=== PATIENT | male | born 1970 | race African-American/Black ===

== ENCOUNTER 2025-01-20 18:17 | Emergency (ER) | payer SELFPAY ==
--- OUTSIDE RECORDS SUMMARY | 2025-01-20 17:33 | XMS_ITS | Encounter Summary ---
Author Organization [facility] Address [id number] [place] [id number] Care Team Providers Care Garnett Machine Operator Name Role Phone Danie Perez MD Primary Care Provider [phone] Reason for Visit * Reason Comments Eye Drainage Eye swollen with anna dalton drainage x5 days Encounter Details Date Type Department Care Team (Late st Contact Info) Description 01/20/2025 5:33 PM EST - 01/20/2025 6:05 PM EST Emergency [facility] Emergency [address] [place] [address] Discharge Disposition: Home or Self Care Social History Tobacco Use Types Packs/Day Years Used Date Smoking Tobacco: Every Day Cigarettes Alcohol Use Standard Drinks/Week Comments Not Asked 0 (1 standard drink = 0.6 oz pur e alcohol) Sex and Gender Information Value Date Recorded Sex Assigned at Not on file Legal Sex Male 9:45 AM EST Gender Identity Not on file Sexual Orientation Not on file documented as of this encounter Last Filed Vital Signs Vital Sign Reading Time Taken Comments Blood Pressure 155/75 01/20/2025 3:19 PM EST Pulse 109 01/20/2025 3:19 PM EST Temperature 36.9 C (98.4 F) 01/20/2025 3:19 PM EST Respiratory Rate 18 01/20/2025 3:19 PM EST Oxygen Saturation 96% 01/20/2025 3:19 PM EST Inhaled Oxygen Concentration - - Weight 86.2 kg (190 lb) 01/20/2025 3:19 PM EST Height 177.8 cm (5' 10 ) 01/20/2025 3:19 PM EST Body Mass Index 27.26 01/20/2025 3:19 PM EST documented in this encounter Functional Status * Calculated C-SSRS Risk Score (Lifetime/Recent) Answer Date of Assessment Author No Risk Indicated 01/20/2025 2:42 PM Amari Ochoa RN * [place] Suicide Severity Rating Scale (Screener/Recent Self-Report) Question Answer Date of Assessment Author 1. Wish to be (Past 1 Month) No 025 2:42 PM eCle Ochoa RN 2. Non-Specific Active Suici aubrey Thoughts (Past 1 Month) No 01/20/2025 2:42 PM Darek Ochoa RN 6. Suicidal Behavior (Lifetime) No 5 2:42 PM Cele Ochoa RN documented as of this encounter Discharge Disposition Disposition Code Departure Means Destination Comment s Home or Self Care documented in this encounter Progress Notes * Cele Gurrola RN - 01/20/2025 2:41 PM EST Eye swollen, red with watery drainage x5 days. 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 Vision is getting blurry. documented in this encounter Plan of Treatment Not on file documented as of this encounter Visit Diagnoses Not on filedocumented in this encounter Care Teams Garnett Machine Operator Relationship Specialty Start Date End Date Danie Perez MD [address] [place] [id number] PCP - General 05/11/03 documented as of this encounter
[2025-01-20 18:21] VITALS: BP 145/84; PULSE 106; RESP 20; TEMP 36.8; O2SAT 97; BMI 28.8
--- NOTE | 2025-01-20 18:22 | ED_ITS ---
HPI - Eye Problem General Chief complaint: Eye Problems Stated complaint: left eye swelling Time Seen by Provider: 01/20/25 21:54 History of Present Illness ED Provider: Chloé BEINTEZ Narrative: The patient is a 54-year-old male who has been having worsening swelling and discomfort in his left eye over the last 4-5 days. He says that he has been helping a friend work on a car in her garage and he thinks that something might have gotten into his left eye that irritate the eye. He says that the left eye has been gradually getting more and more swollen and irritated. He feels that the vision is somewhat blurry. Related Data Previous Rx's ?Medication ?Instructions ?Recorded acetaminophen 500 mg capsule 1,000 mg (2 x 500 mg) PO Q8H PRN 01/20/25 fever or pain #14 caps ibuprofen 400 mg tablet 400 mg PO Q6H PRN pain #14 t abs 01/20/25 moxifloxacin 0.5 % eye drops 1 drp ophthalmic (eye) TI D 7 days 01/20/25 (Vigamox) #3 mL Allergies Allergy/AdvReac Type Severity Reaction Status Date / Time No Known Allergies Allergy Verified 01/20/25 18:25 Review of Systems Review of Systems: Yes all other systems are reviewed and are negative PMFSH Social History Social History Advance Directives: No Advance Directives Information Provided: No Do you have a plan to hurt others: No Plan Physical Exam Vital Signs: Vital Signs: Last Vital Signs Temp 98.3 F 01/20/25 23:10 Pulse 106 H 01/20/25 23:10 Resp 20 01/20/25 23:10 BP 145/84 H 01/20/25 23:10 Pulse Ox 97 01/20/25 23:10 O2 Del Method Room Air 01/20/25 23:10 BMI result Body Mass Index 28.8 Const: Other: The patient is a 54-year-old male. He looks as if he is an ordinarily healthy 54-year-old. He has significant swelling and redness to the left eye. Orientation/consciousness: patient oriented x3 HEENT: Other: The facial exam is significant for swelling in the region of the left eyelids. Otherwise the face is symmetrical and unremarkable. Eyes: Other: Pupils are round, equal, and reactive to light. There is significant chemosis to the conjunctiva of the left eye. The chemosis is inflamed. Extraocular movements are intact. Pupils are reactive to light. slit-lamp exam revealed what I felt was some corneal irregularity. no obvious abnormality to the anterior chamber. Fluorescein staining reveals diffuse punctate uptake to the left cornea. Eyelid eversion revealed no obvious foreign body but eyelid eversion was difficult and poor because of the degree of eyelid swelling and very small eyelashes. The right eye shows some mild conjunctival injection but without the chemosis seen in the left side. Slit-lamp exam of the left eye seemed quite normal. Intra-ocular pressure was 21 in the right eye and 18 in the left eye. Neck: Neck: Yes normal visual inspection and Yes full ROM Resp: Effort & Inspection: normal respiratory effort Skin: Other: Skin is dry and unremarkable Neuro: General: patient oriented x3, gait normal, moves all extremities, no focal motor deficits and CN's II-XI intact bilaterally Extrem: Other: no peripheral edema Course Course Course Narrative: This is an RME: Additional HPI, ROS, PE not included below will be deferred to primary provider. RME assessment and note performed by: Mallorie Leal PA-C This is a 89-lwye-ehz-male with no known medical problems, who presents to the ER with complaints of BL eye redness, swelling. 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 Patient with significant chemosis of the left eye. Pupils are intact. Right conjunctiva is injected. Plan: thorough eye exam Medications Administered Discontinued Medications Generic Name Dose Route Start Last Admin Trade Name Yuniorq PRN Reason Stop Dose Admin Fluorescein Sodium 1 strip 01/20/25 18:27 01/20/25 21:52 Fluorescein Sodium Strip EYE-BOTH 01/20/25 18:28 1 strip ONCE ONE Administration Moxifloxacin HCl 1 drop 01/20/25 22:20 01/20/25 23:02 Moxifloxacin Hcl 0.5 % Oph Mely 3 Ml Drpbtl EYE-BOTH 01/20/25 22:21 1 drop ONCE ONE Administration Tetracaine HCl 1 drop 01/20/25 19:30 01/20/25 21:52 Tetracaine Hcl/Pf 0.5% Oph Mely 4 Ml Drops EYE-BOTH 01/20/25 19:31 1 drop ONCE ONE Administration Medical Decision Making Medical Decision Making MDM Narrative: the patient is a 54-year-old male who was here with eye complaints. The primarily problem is his left eye which is swollen with a lot of chemosis. My overall impression is that the patient has some corneal irregularities with diffuse punctate fluorescein uptake suggestive of keratitis. The patient does not use contact lenses. The patient will be started on moxifloxacin antibiotic eyedrops and should follow up with the Ophthalmology in the morning. Discharge Plan Discharge Clinical Impression: Unspecified superficial keratitis, left eye Patient Disposition: Home, Self-Care Instructions: Keratitis (ED) Additional Instructions: Please administer 1 drop of the antibiotic eyedrop moxifloxacin 3 times a day, approximately every 8 hours. Next dose at 7 AM in the morning. you may use ibuprofen and acetaminophen as needed for pain. Please contact the ophthalmology office in the morning. This is the office of Dr. Taylor'cheryl. Please call the office in the morning for a follow up appointment. Explained that you were in the emergency room and that the emergency room doctor felt you needed a follow up appointment for your eye problem. Return to the emergency room if you are significantly worse. Prescriptions: New moxifloxacin [Vigamox] 0.5 % drops 1 drp ophthalmic (eye) TID 7 Days Qty: 3 0RF ibuprofen 400 mg tablet 400 mg PO Q6H PRN (Reason: pain) Qty: 14 0RF acetaminophen 500 mg capsule 1,000 mg PO Q8H PRN (Reason: fever or pain) Qty: 14 0RF Referrals: Robbin Taylor [Physician, Ophthalmology] Interventions: ED Discharge Assessment Last Done: 01/20/25 23:10 Discharge Date/Time: 01/20/25 23:14 Print Language: Citizen Of [place]
[2025-01-20] MEDS: Tetracaine HCl/PF 0.5% Oph Sol 4 ML DROPS 1 DROP EYE-BOTH (21:52)
[2025-01-20] MEDS: Fluorescein Sodium STRIP 1 STRIP EYE-BOTH (21:52)
[2025-01-20] MEDS: Moxifloxacin HCl 0.5 % Oph Sol 3 ML DRPBTL 1 DROP EYE-BOTH (23:02)
[2025-01-20 23:10] VITALS: BP 145/84; PULSE 106; RESP 20; TEMP 36.8; O2SAT 97
--- OUTSIDE RECORDS SUMMARY | 2025-01-21 01:05 | XMS_ITS | Clinical Summary ---
Author Organization [facility] Address [address] [place] [address] Phone Care Team Providers Care Farm Crops Teacher Name Role Phone Danie Perez MD Primary Care Provider [phone] Allergies No known active allergies Encounters Date Type Department Care Team Description 01/20/2025 5:33 PM EST - 01/20/2025 6:05 PM EST Emergency [facility] Emergency [address] [place] [address] Discharge Disposition: Home or Self Care from Last 3 Months Medical History Medical History Date Comments Urethritis, unspecified 06/29/2005 DX:Ureth ritis, unspecified Family History Medical History Relation Name Comments Diabetes Mother Relation Name Status Comments Mother Social History Tobacco Use Types Packs/Day Years Used Date Smoking Tobacco: Every Day Cigarettes Alcohol Use Standard Drinks/Week Comments Not Asked 0 (1 standard drink = 0.6 oz pur e alcohol) Sex and Gender Information Value Date Recorded Sex Assigned at Not on file Legal Sex Male 9:45 AM EST Gender Identity Not on file Sexual Orientation Not on file Last Filed Vital Signs Vital Sign Reading [...] Mass Index 27.26 01/20/2025 3:19 PM EST Plan of Treatment Health Maintenance Due Date Last Done Comments Colorectal Cancer Screening: Colonoscopy 1970 DTaP,Tdap,and Td Vaccines (1 - Tdap) 1989 Hepatitis B Vaccines (1 of 3 - 19+ 3-dose series) 1989 Pneumococcal Vaccine: 50+ Ye ars (1 of 2 - PCV) 1989 Zoster Vaccines (1 of 2) 02/02/2020 Depression Screening 02/12/2024 COVID-19 Vaccine (1 - 2024-2 6 season) 2024 Influenza Vaccine (#1) 2024 Cholesterol Screening (Lipid Panel) 01/20/2025 HIV Screening 01/20/2025 Hepatitis C Screening 01/20/2025 Social Influencers of Health Screening 01/20/2025 RSV Immunization Adult Patie nts (1 - 1-dose 75+ series) 2045 HIB Vaccines Aged Out No longer eligi ble based on patient's age to complete this topic HPV Vaccines Aged Out No longer eligi ble based on patient's age to complete this topic Hepatitis A Vaccines Aged Out No long er eligible based on patient's age to complete this topic IPV Vaccines Aged Out No longer eligi ble based on patient's age to complete this topic MMR Vaccines Aged Out No longer eligi ble based on patient's age to complete this topic Meningococcal ACWY Vaccine Aged Out N o longer eligible based on patient's age to complete this topic Meningococcal B Vaccine Aged Out No l onger eligible based on patient's age to complete this topic RSV Immunization Patients Un alexandre 20 months Aged Out No longer eligible b ased on patient's age to complete this topic Varicella Vaccines Aged Out No longer eligible based on patient's age to complete this topic Care Teams Farm Crops Teacher Relationship Specialty Start Date End Date Danie Perez MD [address] [place] [address] [place] [id number] PCP - General 05/11/03
== END 2025-01-20 23:14 | disposition home or self-care (01) ==
PROVIDERS: Emergency Provider Emergency Medicine
DX: H16.102 Unspecified superficial keratitis, left eye (principal)
CPT/HCPCS: 99282; 99283